=== PATIENT | male | born 1995 | race Caucasian/White ===

== ENCOUNTER 2019-10-12 08:00 | Outpatient (RCR) | payer OTHER, BC, SELFPAY | END 2019-10-12 08:05 | disposition home or self-care (01) | LOC: PT 08:00 | PROVIDERS: Visit Provider Neurological Surgery | DX: S12.600A Unspecified displaced fracture of seventh cervical vertebra, initial encounter for closed fracture (principal) | CPT/HCPCS: 97010; 97014; 97033; 97110; 97163; 97164; G0283 ==